=== PATIENT | male | born 1965 | race Caucasian/White ===

== ENCOUNTER 2023-12-17 07:04 | Outpatient (CLI) | payer MEDICAID, SELFPAY ==
--- NOTE | 2023-12-17 07:13 | NM_ITS ---
APPROVED REPORT Exam: Nuclear Stress Test Indication: chest pain..soa Patient Location: Outpatient Stress Tech: Amanda Baer [place] Tech:Sondra Milner JACYAsad RT(R)(N) Ht: 5 ft 6 in Wt: 164 lbs HR: 94 bpm BP: 124/80 mmHg BSA: 1.84 m2 TID: 0.98 BMI: 26.4 History: chest pain..soa Procedure: Patient received 0.4 mg of intravenous Lexiscan, resting heart rate 94 bpm, resting blood pressure 124/80 mmHg, with Lexiscan maximum heart rate achieved was 129 bpm which is 85 % of the maximum predicted heart rate and blood pressure was 159/87 mmHg. With Lexiscan, patient denied any complaint of chest pain. Cardiac Stress and Resting SPECT Images: Cardiac Stress and Resting SPECT images were obtained using technetium 99m Myoview 31.6 mCi stress and 10.11 mCi at rest. Resting and stress imaging and supine and prone positions demonstrate no evidence of fixed or reversible perfusion defects. Gated imaging demonstrates mild reduction in global LV systolic function. LVEF is calculated at 46%. Of note, the LVEF calculation may be inaccurate due to technical difficulties. Conclusion: No evidence of fixed or reversible perfusion defects. Gated imaging demonstrates mild reduction in global LV systolic function. LVEF is calculated at 46%. Of note, the LVEF calculation may be inaccurate due to technical difficulties. Correlation with LVEF on TTE is recommended. Electronically signed by : Roxann De Jesus MD 12/21/2023 23:34:33
--- NOTE | 2023-12-17 08:05 | CA_ITS ---
APPROVED REPORT EXAM: Comprehensive 2D, Doppler, and color-flow Echocardiogram Senior Sales Associate: Aria Lezama RDCS Ht: 5 ft 6 in Wt: 165lbs BSA: 1.84 BP: 124/80 mmHg Indications: CP CAD SOA M-Mode Dimensions RVDd 2.15 cm (0.9-2.6) LA Diam 4.27 cm (1.9-4.0) LVDd 5.88 cm (3.5-5.7) LVDs 4.22 cm (3.5-5.7) IVSd 0.70 cm (0.6-1.1) PWd 0.80 cm (0.6-1.1) EF (Teich) 53.80% FS 28.20% EDV (Teich) 171.90 mL ESV (Teich) 79.50 mL LV Diastology E Decel Time 412 (160-240 msec) E/A Ratio 0.6 Aortic Valve AI PHT 572.00 ms Mitral Valve MV E Max Jesse. 102.0 (40-130 cm/s) MV A Velocity 158.0 (40-130 cm/s) E/A Ratio 0.65 MV PHT 121.0 ms Left Ventricle The left ventricle is normal size. The left ventricular systolic function is normal. The left ventricular ejection fraction is within the normal range. There is increased LV wall thickness. There is normal LV segmental wall motion. The left ventricular diastolic function is normal. LVEF is 55%. Right Ventricle The right ventricle is normal size. The right ventricular systolic function is normal. Atria The left atrium size is normal. The right atrium size is normal. There is no Doppler evidence of interatrial shunt. Aortic Valve The aortic valve is mildly thickened. There is no aortic valvular stenosis. Mild aortic regurgitation. Mitral Valve The mitral valve is normal in structure. No evidence of mitral valve stenosis. Trace mitral regurgitation. Tricuspid Valve The tricuspid valve leaflets are thin and pliable. Trace tricuspid regurgitation. There is insufficient TR jet to estimate RVSP. Pulmonic Valve The pulmonary valve is normal in structure. Trace pulmonic regurgitation. Great Vessels The aortic root is normal in size. The ascending aorta is normal in size. IVC is normal in size and collapses >50% with inspiration. Pericardium There is no pericardial effusion. Other Information Study Quality: Fair Conclusion Normal biventricular systolic function. Mild AI. Electronically signed by : Roxann De Jesus MD 12/21/2023 20:54:14
[2023-12-17] MEDS: SODIUM CHLORIDE 0.9% 10ML SYR (RAD ONLY) 10 ML IV ×2 (09:36)
[2023-12-17] MEDS: REGADENOSON 0.4MG/5ML SYRINGE 0.400000000000000022 MG IV (09:36)
[2023-12-17] MEDS: ISOTOPE MYOVIEW (PER STUDY) 1 DOSE IV (09:36)
--- NOTE | 2023-12-17 10:12 | CA_ITS ---
APPROVED REPORT Exam: Pharmacologic Technologist: Amanda Hayes, Ht: 5 ft 6 in Wt: 165 lbs BSA: 1.84 m2 HR: 84 bpm BP: 124/80 mmHg Rhythm: NSR Medical History Medications: Aspirin,,,,, Multivitamin,,,,, SeNnosides,,,,, Metoprolol Succinate ER,,,,, Vitamin D3, B-12,,,,, PaLIPERIDONE er,,,,, Stress Test Details Test: LEXISCAN HR Resting HR: 94 bpm Max Heart Rate (APMHR): 163 bpm Max HR Achieved: 129 bpm Target HR (85% APMHR): 139 bpm % of APMHR: 79 Recovery HR: 104 bpm BP Resting BP: 124.0/80.0 mmHg Max BP: 159.0/87.0 mmHg Recovery BP: 158.0/87.0 mmHg ECG Resting ECG: NSR, rightward axis, ST-T abns inferiorly Stress ECG: No significant ST changes Arrhythmia: None Clinical Exercise duration: 04:00 min Highest Stage Achieved: Exercise capacity: 1.0 METs Stress ECG Conclusion Symptoms: SOA, mild stomach discomfort. No CP. Arrhythmias/Ectopy: None ST-T Changes: No significant ST changes Conclusion: Unremarkable Lexiscan stress test. Myoview images reported separately. Test Summary REST . . . . . . . Resting REST 03:05 . . 94 . 124/ 80 . . Stage 1 01:00 . . 123 . . . . Stage 2 01:00 . . 124 . . . . Stage 3 01:00 . . 117 . 157/ 92 . . Stage 4 01:00 . . 108 . 151/ 80 . Stop exercise at 04:00 RECOVERY 01:00 . . 126 . 136/ 85 . . RECOVERY 02:00 . . 110 . 148/ 89 . . RECOVERY 03:00 . . 100 . 148/ 89 . . RECOVERY 04:00 . . 113 . 159/ 87 . . RECOVERY 04:06 . . 0 . 159/ 87 . . Electronically signed by : Roxann De Jesus MD 12/21/2023 23:31:49
== END 2023-12-17 23:59 ==
LOC: RAD 07:04
PROVIDERS: Visit Provider Physician Assistant
DX: R06.00 Dyspnea, unspecified (principal); R07.9 Chest pain, unspecified; I25.10 Atherosclerotic heart disease of native coronary artery without angina pectoris; R56.9 Unspecified convulsions; I63.9 Cerebral infarction, unspecified; F17.200 Nicotine dependence, unspecified, uncomplicated
CPT/HCPCS: 78452; 93017; 93018; 93306; A9502; J2785